=== PATIENT | male | born 1990 | race African-American/Black ===

== ENCOUNTER 2018-06-07 12:01 | Emergency (ER) | payer OTHER ==
[2018-06-07 12:12] VITALS: BP 119/84; PULSE 67; TEMP 97.7; BMI 29.7
--- NOTE | 2018-06-07 12:55 | PDOC ---
History of Present Illness - General Chief Complaint: Headache Stated Complaint: HEADACHE Time Seen by Provider: 06/07/18 12:45 History Source: Patient Exam Limitations: Clinical Condition - History of Present Illness Initial Comments: 06/07/18 12:50 Patient with history of anxiety on meds present with complain of 2 month history of intermittent headaches, nasal congestion and popping sound in bilateral ears. Patient reported headache improves with Tylenol. Patient denies cough, fever, dizziness, blurry vision, change in vision. Denies any other symptoms Timing/Duration: other (2 months) Past History - Past Medical History Allergies/Adverse Reactions: Allergies Allergy/AdvReac Type Severity Reaction Status Date / Time No Known Allergies Allergy Verified 04/02/18 20:47 Home Medications: Ambulatory Orders Ipratropium [place] 2 spray NS BID PRN #1 spray 06/07/18 Loratadine 10 mg PO DAILY #10 tablet 06/07/18 Methylprednisolone [Medrol Dose [place]] 4 mg PO ASDIR #21 tablet 06/07/18 COPD: No Psychiatric Problems: Yes (anxiety) - Immunization History Immunization Up to Date: Yes - Suicide/Smoking/Psychosocial Hx Smoking History: Never smoked Have you smoked in the past 12 months: No Information on smoking cessation initiated: No Hx Alcohol Use: No Drug/Substance Use Hx: No Substance Use Type: None Review of Systems - Review of Systems Able to Perform ROS?: Yes Is the patient limited Macedonian proficient: No Constitutional: No: Chills, Fever, Malaise, Night Sweats, Weakness HEENTM: Yes: Nose Congestion. No: Eye Pain, Blurred Vision, Tearing, Recent change in vision, Double Vision, Cataracts, Ear Pain, Ocular Prothesis, Ear Discharge, Nose Pain, Tinnitus, Nose Bleeding, Hearing Loss, Throat Pain, Throat Swelling, Mouth Pain, Dental Problems, Difficulty Swallowing, Mouth Swelling, Other Respiratory: No: Cough, Orthopnea, Shortness of Breath, SOB with Exertion, SOB at Rest, Stridor, Wheezing, Productive cough, Hemoptysis, Other Cardiac (ROS): No: Chest Pain, Edema, Irregular Heart Rate, Lightheadedness, Palpitations, Syncope, Chest Tightness, Other ABD/GI: No: Abdominal Distended, Abd. Pain w/ defecation, Blood Streaked Bowels , Constipated, Diarrhea, Difficulty Swallowing, Nausea, Poor Appetite, Poor Fluid Intake, Rectal Bleeding, Vomiting, Indigestion, Abdominal cramping, Tarry Stools, Other Neurological: Yes: Headache. No: Numbness, Paresthesia, Weakness, Dizziness All Other Systems: Reviewed and Negative *Physical Exam - Vital Signs Last Vital Signs Temp Pulse Resp BP Pulse Ox 97.7 F 67 18 119/84 99 06/07/18 12:09 06/07/18 12:09 06/07/18 12:09 06/07/18 12:09 06/07/18 12:09 - Physical Exam Comments: 06/07/18 12:52 GENERAL: Well developed, well nourished. Awake and alert. No acute distress. HEENT: Normocephalic, atraumatic. PERRLA, EOMI. No conjunctival pallor. Sclera are non- icteric. Moist mucous membranes. Oropharynx is clear. NECK: Supple. Full ROM. No JVD. Carotid pulses 2+ and symmetric, without bruits. No thyromegaly. No lymphadenopathy. CARDIOVASCULAR: Regular rate and rhythm. No murmurs, rubs, or gallops. Distal pulses are 2+ and symmetric. PULMONARY: No evidence of respiratory distress. Lungs clear to auscultation bilaterally. No wheezing, rales or rhonchi. ABDOMINAL: Soft. Non-tender. Non-distended. No rebound or guarding. No organomegaly. Normoactive bowel sounds. MUSCULOSKELETAL Normal range of motion at all joints. No bony deformities or tenderness. No CVA tenderness. EXTREMITIES: No cyanosis. No clubbing. No edema. No calf tenderness. SKIN: Warm and dry. Normal capillary refill. No rashes. No jaundice. NEUROLOGICAL: Alert, awake, appropriate. Cranial nerves 2-12 intact. No deficits to light touch and temperature in face, upper extremities and lower extremities. No motor deficits in the in face, upper extremities and lower extremities. Normoreflexic in the upper and lower extremities. Normal speech. Toes are down- going bilaterally. Gait is normal without ataxia. PSYCHIATRIC: Cooperative. Good eye contact. Appropriate mood and affect. General Appearance: Yes: Nourished, Appropriately Dressed. No: Apparent Distress Medical Decision Making - Medical Decision Making 06/07/18 12:52 Patient presenting with complain of 2 month history of intermittent headaches, nasal congestion, sinus pain, and bilateral ear discomfort . clinical exam unremarkable. Symptoms likely sinusitis with headache. Patient is stable for outpatient treatment with ENT follow-up *DC/Admit/Observation/Transfer Diagnosis at time of Disposition: Nasal congestion Sinusitis Qualifiers: Sinusitis location: unspecified location Chronicity: acute Recurrence: non- recurrent Qualified Code(s): J01.90 - Acute sinusitis, unspecified Headache Qualifiers: Headache type: unspecified Headache chronicity pattern: acute headache Intractability: not intractable Qualified Code(s): R51 - Headache - Discharge Dispostion Disposition: HOME Condition at time of disposition: Stable Decision to Admit order: No - Prescriptions Prescriptions: Ipratropium [place] 2 spray NS BID PRN #1 spray PRN Reason: nasal congestion Loratadine 10 mg PO DAILY #10 tablet Methylprednisolone [Medrol Dose [place]] 4 mg PO ASDIR #21 tablet - Referrals Referrals: Armando Benitez MD [Primary Care Provider] - Omkar Irene MD [Staff Physician] - - Patient Instructions Printed Discharge Instructions: DI for Sinusitis Additional Instructions: Take medications as prescribed for sinus headaches. Increase fluid intake. Follow-up will referred ENT if symptoms persist for more than 4 days - Post Discharge Activity
== END 2018-06-07 13:11 | disposition home or self-care (01) ==
LOC: JERFT 12:01
DX: J01.90 Acute sinusitis, unspecified (principal)
CPT/HCPCS: 99281-25